=== PATIENT | male | born 1995 | race African-American/Black ===

== ENCOUNTER 2019-02-12 08:08 | Emergency (ER) | payer BC ==
[~2019-02-12] VITALS: Ht 180.3 cm; Wt 112.5 kg
[~2019-02-12 08:08] MED LIST: ZONI100C26 PO
[2019-02-12] MEDS ORDERED: ZONISAMIDE 100 MG CAPSULE. PO STA (08:22)
[2019-02-12] MEDS ORDERED: IV NORMAL SALINE 500ML 500 ML IV ONE (08:30)
--- NOTE | 2019-02-12 08:38 | PHYS DOC ---
Past History Past Medical History: Seizure, Other Past Surgical History: No Surgical History Smoking: Non-smoker Alcohol Use: None Drug Use: None Adult General Chief Complaint Chief Complaint: SEIZURE HPI HPI Patient is a 23-year-old male presents post a witnessed seizure at work. EMS brought him to the emergency department. He was noted to have an abrasion on his chin. EMS obtained a fingerstick blood sugar of 85. Patient does have a history of seizure disorder. History was limited initially from the patient due to being post ictal. Discussion with patient's father, patient has been off of his seizure medicine, zonisamide, for approximately the past week due to complications between physician office visit and the pharmacy being able to obtain the medicine. Discussion with both patient and family, there has been no lack of sleep, drug or alcohol use or withdrawal. Patient denies any head pain. Denies any loose or non-fitting teeth. [] Review of Systems Review of Systems Constitutional: Denies fever or chills [] Eyes: Denies change in visual acuity, redness, or eye pain [] HENT: Denies nasal congestion or sore throat [] Respiratory: Denies cough or shortness of breath [] Cardiovascular: No chest pain or palpitations[] GI: Denies abdominal pain, nausea, vomiting, bloody stools or diarrhea [] : Denies dysuria or hematuria [] Musculoskeletal: Denies back pain or joint pain [] Integument: Denies rash or skin lesions [] Neurologic: Denies headache, focal weakness or sensory changes, see history of present illness [] Endocrine: Denies polyuria or polydipsia [] All other systems were reviewed and found to be within normal limits, except as documented in this note. Current Medications Current Medications Current Medications Medications (Trade) Dose Ordered Sig/[facility] Start Time Stop Time Status Last Admin Dose Admin Sodium Chloride 500 ml @ 0 mls/hr 1X ONCE 02/12/19 08:30 02/12/19 08:31 Allergies Allergies Allergies Coded Allergies Type Severity Reaction Last Updated Verified No Known Drug Allergies 06/09/14 No Physical Exam Physical Exam Constitutional: Well developed, well nourished, no acute distress, non-toxic appearance. [] HENT: Normocephalic, abrasion of chin, bilateral external ears normal, oropharynx moist, no oral exudates, nose normal. No loose teeth, no damage to the tongue [] Eyes: PERRLA, EOMI, conjunctiva normal, no discharge. [] Neck: Normal range of motion, no tenderness, supple, no stridor. [] Cardiovascular:Heart rate regular rhythm, no murmur [] Lungs & Thorax: Bilateral breath sounds clear to auscultation [] Abdomen: Bowel sounds normal, soft, no tenderness, no masses, no pulsatile masses. [] Skin: Warm, dry, no erythema, no rash. [] Back: No tenderness, no CVA tenderness. [] Extremities: No tenderness, no cyanosis, no clubbing, ROM intact, no edema. [] Neurologic: Alert and oriented X 3, slow to answer questions, otherwise normal motor function, normal sensory function, no focal deficits noted. [] Psychologic: Affect normal, judgement normal, mood normal. [] Current Patient Data Vital Signs Vital Signs Date Time Temp Pulse Resp B/P (MAP) Pulse Ox O2 Delivery O2 Flow Rate FiO2 02/12/19 08:10 97.7 89 15 99 Room Air 02/12/19 08:08 141/78 (99) Lab Results Laboratory Tests Test 02/12/19 08:15 Sodium Level 140 mmol/L Potassium Level 4.4 mmol/L Chloride Level 105 mmol/L Carbon Dioxide Level 22 mmol/L Anion Gap 13 Blood Urea Nitrogen 16 mg/dL Creatinine 1.1 mg/dL Estimated GFR (Cockcroft-Gault) 98.7 BUN/Creatinine Ratio 15 Glucose Level 105 mg/dL Calcium Level 8.7 mg/dL Total Bilirubin 0.2 mg/dL Aspartate Amino Transf (AST/SGOT) 20 U/L Alanine Aminotransferase (ALT/SGPT) 34 U/L Alkaline Phosphatase 81 U/L Total Protein 7.8 g/dL Albumin 3.9 g/dL Albumin/Globulin Ratio 1.0 Current Medications Medications (Trade) Dose Ordered Sig/Nathaniel Route PRN Reason Start Time Stop Time Status Last Admin Dose Admin Sodium Chloride 500 ml @ 0 mls/hr 1X ONCE IV 02/12/19 08:30 02/12/19 08:31 DC 02/12/19 08:44 Zonisamide (Zonegran) 200 mg 1X STAT PO 02/12/19 08:22 02/12/19 08:32 DC 02/12/19 08:43 EKG EKG EKG shows a sinus tachycardia at 101 bpm, normal axis, QTC of 429 ms, no ST elevation. Interpreted by me at 0814[] Radiology/Procedures Radiology/Procedures [] Course & Med Decision Making Course & Med Decision Making Pertinent Labs and Imaging studies reviewed. (See chart for details) Emergency department course: Patient arrived, was placed in bed, and tolerated exam well. His mental status improved during his emergency department stay. He was given a dose of his antiseizure medicine while in the emergency department. Findings and plan were discussed with patient and family who voiced understandin g. He was discharged in improved condition. Medical decision making: Patient with a known seizure disorder who has missed several doses of his antiepileptic medication resulting in a seizure. There is no evidence of significant electrolyte abnormality. No evidence of prolonged QT syndrome. No evidence of intracranial mass or bleed.[] Dragon Disclaimer Dragon Disclaimer This electronic medical record was generated, in whole or in part, using a voice recognition dictation system. Departure Departure: Impression: Primary Impression: Seizure Additional Impression: Abrasion of chin Disposition: HOME, SELF-CARE Condition: IMPROVED Referrals: HAYDEE MEDINA MD (PCP) Follow-up within 2 days Patient Instructions: Abrasions, Seizure, Adult Additional Instructions: Follow-up with your regular doctor in 2 days. Take your antiseizure medicines as prescribed. No driving for 6 months or until cleared by your primary care physician or neurologist. Return to the ER if you develop a fever, have another seizure, or any other concerns. Problem Qualifiers Additional Impression: Abrasion of chin Encounter type: initial encounter Qualified Codes: S00.81XA - Abrasion of other part of head, initial encounter JORDI HSU DO Feb 12, 2019 08:38
[2019-02-12 08:40] LABS: ALBUMIN 3.9 g/dL (3.4-5.0); CALCIUM 8.7 mg/dL (8.5-10.1); CREATININE 1.1 mg/dL (0.7-1.3); GFR 98.7; POTASSIUM 4.4 mmol/L (3.5-5.1); TOTAL BILIRUBIN 0.2 mg/dL (0.2-1.0); TOTAL PROTEIN 7.8 g/dL (6.4-8.2)
[2019-02-12 09:10] VITALS: BP 143/74
[2019-02-12] MEDS ORDERED: ZONISAMIDE 100 MG CAPSULE. PO SCH (09:15)
--- NOTE | 2019-02-14 07:04 | EKG ---
[address] [address] Test Date: 2019-02-12 Test Time: 08:14:04 Pat Name: YANDY SPENCER Department: Room: Gender: M Director [employer]: : 1995 Requested By: JORDI HSU Order Number: [id number] Reading MD: Manny Graham MD Measurements Intervals [place] Rate: 101 P: 63 NC: 152 QRS: 85 QRSD: 90 T: 16 QT: 326 QTc: 429 Interpretive Statements SINUS TACHYCARDIA Electronically Signed On 03-28-2019 13:58:50 [employer] by Manny Graham MD
== END 2019-02-12 09:40 | disposition home or self-care (01) ==
LOC: ER 08:08
DX: S00.81XA Abrasion of other part of head, initial encounter (principal); G40.909 Epilepsy, unspecified, not intractable, without status epilepticus; W18.39XA Other fall on same level, initial encounter; Y93.89 Activity, other specified; Y92.89 Other specified places as the place of occurrence of the external cause; Y99.8 Other external cause status
CPT/HCPCS: 36415; 80053; 99284; J7040; 99285-25

== ENCOUNTER 2019-05-14 21:05 | Emergency (ER) | payer BC ==
[~2019-05-14] VITALS: Ht 180.3 cm; Wt 112.5 kg
--- NOTE | 2019-05-14 21:14 | PHYS DOC ---
Past History Past Medical History: Seizure, Other Past Surgical History: No Surgical History Smoking: Non-smoker Alcohol Use: None Drug Use: None Adult General Chief Complaint Chief Complaint: SEIZURE HPI HPI Patient is a 23-year-old male with history of seizure disorder, he is on ZONISAMIDE 100 mg in the morning and 200 mg at night. He is under the care of a neurologist locally. Patient went to work today, had taken his morning medi cations already but he did not take his evening medications yet. Patient was at work today, witness noted that he had a generalized seizure that lasted for 3 minutes. Patient was very confused afterward. EMS was called to take him here for evaluation. Patient denied any headache, no neck pain, no back pain, no abdominal pain. Patient said he did take a nab today prior to go work. He denied any cough or fever, did not feel anything different today. Review of Systems Review of Systems Constitutional: Denies fever or chills [] Eyes: Denies change in visual acuity, redness, or eye pain [] HENT: Denies nasal congestion or sore throat [] Respiratory: Denies cough or shortness of breath [] Cardiovascular: No additional information not addressed in HPI [] GI: Denies abdominal pain, nausea, vomiting, bloody stools or diarrhea [] : Denies dysuria or hematuria [] Musculoskeletal: Denies back pain or joint pain [] Integument: Denies rash or skin lesions [] Neurologic: Denies headache, focal weakness or sensory changes. Positive for having a seizure. Endocrine: Denies polyuria or polydipsia [] All other systems were reviewed and found to be within normal limits, except as documented in this note. Current Medications Current Medications Current Medications Medications (Trade) Dose Ordered Sig/[facility] Start Time Stop Time Status Last Admin Dose Admin Sodium Chloride 1,000 ml @ 1,000 mls/hr 1X ONCE 05/14/19 21:15 05/14/19 22:14 UNV Zonisamide (Zonegran) 200 mg 1X STAT 05/14/19 21:12 05/14/19 21:13 UNV Allergies Allergies Allergies Coded Allergies Type Severity Reaction Last Updated Verified No Known Drug Allergies 06/09/14 No Physical Exam Physical Exam Constitutional: Well developed, well nourished, no acute distress, non-toxic appearance. [] HENT: Normocephalic, atraumatic, bilateral external ears normal, oropharynx moist, no oral exudates, nose normal. NO TONGUE CONTUSION OR ABRASION. Eyes: PERRLA, EOMI, conjunctiva normal, no discharge. [] Neck: Normal range of motion, no tenderness, supple, no stridor. [] Cardiovascular:Heart rate regular rhythm, no murmur [] Lungs & Thorax: Bilateral breath sounds clear to auscultation [] Abdomen: Bowel sounds normal, soft, no tenderness, no masses, no pulsatile masses. [] Skin: Warm, dry, no erythema, no rash. [] Back: No tenderness, no CVA tenderness. [] Extremities: No tenderness, no cyanosis, no clubbing, ROM intact, no edema. [] Neurologic: Alert and oriented X 3, normal motor function, normal sensory function, no focal deficits noted. Psychologic: Affect normal, judgement normal, mood normal. [] Current Patient Data Lab Results Laboratory Tests Test 05/14/19 21:18 White Blood Count 9.8 x10^3/uL Red Blood Count 5.02 x10^6/uL Hemoglobin 14.9 g/dL Hematocrit 45.3 % Mean Corpuscular Volume 90 fL Mean Corpuscular Hemoglobin 30 pg Mean Corpuscular Hemoglobin Concent 33 g/dL Red Cell Distribution Width 13.2 % Platelet Count 294 x10^3/uL Neutrophils (%) (Auto) 54 % Lymphocytes (%) (Auto) 36 % Monocytes (%) (Auto) 7 % Eosinophils (%) (Auto) 2 % Basophils (%) (Auto) 1 % Neutrophils # (Auto) 5.3 x10^3uL Lymphocytes # (Auto) 3.5 x10^3/uL Monocytes # (Auto) 0.7 x10^3/uL Eosinophils # (Auto) 0.2 x10^3/uL Basophils # (Auto) 0.0 x10^3/uL Sodium Level 143 mmol/L Potassium Level 4.0 mmol/L Chloride Level 107 mmol/L Carbon Dioxide Level 21 mmol/L Anion Gap 15 Blood Urea Nitrogen 13 mg/dL Creatinine 1.2 mg/dL Estimated GFR (Cockcroft-Gault) 89.3 BUN/Creatinine Ratio 11 Glucose Level 99 mg/dL Calcium Level 8.5 mg/dL Magnesium Level 2.0 mg/dL Total Bilirubin 0.2 mg/dL Aspartate Amino Transf (AST/SGOT) 16 U/L Alanine Aminotransferase (ALT/SGPT) 25 U/L Alkaline Phosphatase 87 U/L Creatine Kinase 234 U/L Total Protein 7.4 g/dL Albumin 4.0 g/dL Albumin/Globulin Ratio 1.2 Current Medications Medications (Trade) Dose Ordered Sig/[facility]iel Route PRN Reason Start Time Stop Time Status Last Admin Dose Admin Zonisamide (Zonegran) 200 mg 1X ONCE PO 05/14/19 21:30 05/14/19 21:31 DC 05/14/19 21:50 Sodium Chloride 1,000 ml @ 1,000 mls/hr 1X ONCE IV 05/14/19 21:30 05/14/19 22:29 05/14/19 21:22 EKG EKG [] Radiology/Procedures Radiology/Procedures [] Course & Med Decision Making Course & Med Decision Making Pertinent Labs and Imaging studies reviewed. (See chart for details) Patient was doing well in the ER, no seizure activities observed. Patient was given his evening dose of his seizure medication. Patient WAS recommended to increase his morning dose to 200 mg ZONISAMIDE IN AM, KEEP EVENING DOSE OF 200 MG AT NIGHT. HE WAS INSTRUCTED TO CALL HIS NEUROLOGIST TOMORROW FOR FURTHER INSTRUCTION. PATIENT'S PARENTS ARE HERE TO TAKE HIM HOME. Dragon Disclaimer Dragon Disclaimer This electronic medical record was generated, in whole or in part, using a voice recognition dictation system. Departure Departure: Impression: Primary Impression: Seizure Disposition: HOME, SELF-CARE Condition: STABLE Referrals: HAYDEE MEDINA MD (PCP) PLEASE CALL YOUR DOCTOR TOMORROW FOR FOLLOW UP IN 1-2 DAYS. TAKE 200 MG OF YOUR SEIZURE MEDICATION IN AM AND TAKE 200 MG AT NIGHT. Patient Instructions: Seizure Disorder, Child, Generalized Tonic-Clonic Additional Instructions: Thank you for visiting our Emergency Department. We appreciate you trusting us with your care. If any additional problems come up don't hesitate to return to visit us. Please follow up with your primary care provider so they can plan additional care if needed and know about the problem that you had. If symptoms worsen come back to the Emergency Department. Any concerning symptoms that start such as chest pain, shortness of air, weakness or numbness on one side of the body, running high fevers or any other concerning symptoms return to the ER. BAYRON CANNON DO May 14, 2019 21:14
[2019-05-14] MEDS: IV NORMAL SALINE 1,000ML 1,000 ML IV ONE (21:22)
[2019-05-14] MEDS: ZONISAMIDE 100 MG CAPSULE. PO ONE (21:50)
[2019-05-14 21:51] LABS: BASO % 1 % (0-3); CALCIUM 8.5 mg/dL (8.5-10.1); CREATININE 1.2 mg/dL (0.7-1.3); EOS # 0.2 x10^3/uL (0.0-0.7); EOS % 2 % (0-3); GFR 89.3; HEMATOCRIT 45.3 % (39.0-53.0); HEMOGLOBIN 14.9 g/dL (13.0-17.5); LYMPH # 3.5 x10^3/uL (1.0-4.8); LYMPH % 36 % (24-48); MEAN CORPUSCULAR HEMOGLOBIN 30 pg (25-35); MEAN CORPUSCULAR HGB CONC 33 g/dL (31-37); MEAN CORPUSCULAR VOLUME 90 fL (79-100); MONO # 0.7 x10^3/uL (0.0-1.1); MONO % 7 % (0-9); NEUT # 5.3 x10^3uL (1.8-7.7); NEUT % 54 % (31-73); PLATELET COUNT 294 x10^3/uL (140-400); RED BLOOD COUNT 5.02 x10^6/uL (4.30-5.70); RED CELL DISTRIBUTION WIDTH 13.2 % (11.5-14.5); WHITE BLOOD COUNT 9.8 x10^3/uL (4.0-11.0)
[2019-05-14 21:57] LABS: ALBUMIN/GLOBULIN RATIO 1.2 (1.0-1.7); TOTAL BILIRUBIN 0.2 mg/dL (0.2-1.0); TOTAL PROTEIN 7.4 g/dL (6.4-8.2)
[2019-05-14 22:09] VITALS: BP 132/64
[2019-05-14 22:17] LABS: BARBITURATES NEG (NEG); BENZODIAZEPINES NEG (NEG); CANNABINOIDS NEG (NEG); COCAINE NEG (NEG); METHADONE NEG (NEG); OPIATES NEG (NEG); PHENCYCLIDINE NEG (NEG)
[2019-05-14 22:18] LABS: BILIRUBIN,URINE NEG (NEG); CLARITY,URINE CLEAR; COLOR,URINE YELLOW; GLUCOSE,URINE NEG (NEG); NITRITE,URINE NEG (NEG); UROBILINOGEN,URINE 0.2 mg/dL (0.2 mg/dL)
[2019-05-14 22:19] LABS: BACTERIA,URINE 0 /HPF (0-FEW); HYALINE CASTS, URINE OCC /HPF; RBC,URINE 0 /HPF (0-2); SQUAMOUS EPITHELIAL CELL,UR OCC /LPF; WBC,URINE OCC /HPF (0-4)
[2019-05-14 22:22] LABS: AMPHETAMINE/METHAMPHETAMINE NEG (NEG)
== END 2019-05-14 22:26 | disposition home or self-care (01) ==
LOC: ER 21:05
DX: G40.909 Epilepsy, unspecified, not intractable, without status epilepticus (principal); R41.0 Disorientation, unspecified
CPT/HCPCS: 36415; 80053; 80307; 81001; 82550; 83735; 85025; 96360; 99283-25; J7030